=== PATIENT | female | born 1960 | race Caucasian/White ===

== ENCOUNTER 2016-05-19 00:07 | Emergency (ER) | payer OTHER ==
[2016-05-19] MEDS ORDERED: EPINEPHRINE ONE (00:20)
[2016-05-19] MEDS ORDERED: PEPCID ONE (00:25)
[2016-05-19] MEDS ORDERED: SOLU-MEDROL ONE (00:25)
[2016-05-19] MEDS ORDERED: BENADRYL ONE (00:25)
[2016-05-19] MEDS ORDERED: SODIUM CHLORIDE 0.9% INJ ONE (00:27)
[2016-05-19] MEDS ORDERED: SOLU-MEDROL IV ONE (00:27)
[2016-05-19] MEDS ORDERED: PEPCID IV ONE (00:27)
[2016-05-19] MEDS ORDERED: EPINEPHRINE SUBQ ONE ×3 (00:27→01:02)
[2016-05-19] MEDS ORDERED: BENADRYL IV ONE (00:27)
[2016-05-19] MEDS ORDERED: ATIVAN IV ONE (00:33)
--- NOTE | 2016-05-19 00:33 | PROVIDER DOCUMENTATION ---
HPI-Rash/Wound/ReCheck - General Source: patient, family () - History of Present Illness-Dermatology Location: reports: upper extremity, face, hands Quality: reports: itchy, painful Severity: reports: moderate Onset/Duration: reports: this afternoon (1400) Timing: reports: still present Context/Associated Symptoms: reports: rash Identifiable cause?: No Exposure: reports: unknown cause Locality of Occurance: Home Similar Symptoms Previously?: No Recently seen or treated by another doctor?: No <Bernardo Holt - Last Filed: 05/19/16 00:48> <Monique Luna - Last Filed: 05/19/16 01:58> - General Chief Complaint: Allergic Reaction Stated Complaint: "PAIN/BODY SWELLING" Time Seen by Provider: 05/19/16 00:27 Allergies/Adverse Reactions: Allergies Allergy/AdvReac Type Severity Reaction Status Date / Time morphine Allergy Severe HEADACHE Verified 04/27/12 13:11 NSAIDS (Non-Steroidal Allergy Severe Unknown Verified 04/27/12 13:11 Anti-Inflamma oseltamivir phosphate * Allergy Severe NAUSEA/VOMI Verified 04/27/12 13:20 [From Tamiflu] TING Penicillins Allergy Severe NAUSEA/VOMI Verified 04/27/12 13:11 TING Sulfa (Sulfonamide Allergy Severe Unknown Verified 04/27/12 13:11 Antibiotics) amoxicillin [Amoxicillin] Allergy Intermediate RASH Verified 04/28/12 06:48 sulfamethoxazole Allergy Intermediate RASH Verified 04/28/12 06:48 [From Bactrim] trimethoprim [From Bactrim] Allergy Intermediate RASH Verified 04/28/12 06:48 Home Medications: Home Medication List Medication Instructions Recorded Confirmed Last Taken Type Alprazolam [Xanax] 1 mg PO TID 04/27/12 04/27/12 05/20/12 17:00 History Estradiol [Estrace] 2 mg PO DAILY 04/27/12 04/27/12 05/19/12 20:00 History Omeprazole [Prilosec] 40 mg PO DAILY 04/27/12 04/27/12 05/20/12 04:00 History Fluticasone 50 Mcg Nasal [place] 1 spray MATILDE DAILY 04/28/12 04/28/12 05/14/12 History [Flonase] Docusate Sodium [Colace] 100 mg PO BID PRN PRN #0 capsule 05/01/12 05/20/12 13: 00 Rx ATORVAstatin [Lipitor] 40 mg PO DAILY 05/20/12 05/20/12 05/20/12 History Clindamycin [Cleocin] 300 mg PO TID #21 capsule 05/20/12 Unknown Rx Esomeprazole [Nexium] 40 mg PO DAILY 05/20/12 05/20/12 05/20/12 10:00 History Hydrocodone/APAP 7.5 mg/325 mg 1 each PO Q6H PRN PRN #20 tablet 05/20/12 Unknown Rx [[place]-7.5] Varenicline Tartrate [Chantix] 1 mg PO BID 05/20/12 05/20/12 05/19/12 History Diphenhydramine [Benadryl] 25 mg PO Q4-6H PRN PRN #20 capsule 05/19/16 Unknown Rx Famotidine [Pepcid] 20 mg PO DAILY #20 tablet 05/19/16 Unknown Rx Prednisone [Deltasone] 20 mg PO DIRECTED #12 tablet 05/19/16 Unknown Rx - History of Present Illness-Dermatology Nature of Presenting Problem: 55 y/o F presents to the ED c/o painful rash to bilateral upper extremities and face. onset today around 1400. rash started on her right hand then noticed x1 hour later it had spread to her bilateral arms and around her eyes. patient states she took a children's dose 12.5mg of Benadryl around 1500 today. denies any new foods or any new environments. recently had surgery x3 weeks ago on her left hand. patient is currently involved in chronic pain management and states she ran out of her 1bib but does have any appointment tomorrow for a refill. denies any shortness of breath, difficulty breathing, throat swelling and all other symptoms. no other voiced complaints. (Yanet,Bernardo B.) Review of Systems - Adult - REVIEW OF SYSTEMS - ADULT Constitutional: denies: chills, fever Eyes: denies: decreased vision, blurred vision Ears, Nose, Mouth & Throat: denies: throat pain, throat swelling Cardiovascular: denies: chest pain, palpitations Respiratory: denies: shortness of breath, wheezing Gastrointestinal: denies: diarrhea, nausea, vomiting Musculoskeletal: denies: bone pain, back pain, joint pain Integumentary: reports: rash. denies: itching Neurological: denies: dizziness/vertigo, headache/migraines Psychiatric: reports: no symptoms reported Endocrine: reports: no symptoms reported Hematologic/Lymphatic: reports: no symptoms reported Allergic/Immunologic: reports: no symptoms reported <Bernardo Holt - Last Filed: 05/19/16 00:48> Past History - Adult - PAST MEDICAL HISTORY-ADULT Review of Records: reports: Nursing Assessment Review, Medications Reviewed, Social history reviewed & non-contributory. Major Childhood Illnesses: reports: denies history Cardiovascular: reports: denies history Respiratory: reports: asthma Gastrointestinal: reports: denies history Obstetrical/Gynecological: reports: denies history Genitourinary: reports: denies history Musculoskeletal: reports: denies history Neurological: reports: denies history Psychiatric: reports: denies history Endocrine/Immune: reports: denies history Other Conditions: reports: denies history - PRIOR SURGERIES/PROCEDURES Surgical/Procedure History: reports: hysterectomy - IMMUNIZATION STATUS Childhood Immunizations: See Nurse Assessment Flu Vaccine: See Nurse Assessment - FAMILY HISTORY Family History: reviewed, not pertinent - SOCIAL HISTORY Smoking: cigarettes, less than 1 pack/day <Bernardo Holt - Last Filed: 05/19/16 00:48> Physical Exam-General - PHYSICAL EXAM-ADULT Initial Vital Signs Reviewed: Yes - CONSTITUTIONAL General Appearance: alert, no apparent distress, anxious - EYES Eyes: PERRL/EOMI, pink conjunctivae - HEAD, EARS, NOSE, MOUTH & THROAT HENMT: moist mucous membranes, normal ENT inspection, other (airway intact, no tongue swelling) - NECK Neck: full range of motion, normal inspection - RESPIRATORY Respiratory: chest non-tender, lungs clear, normal breath sounds, no pleuratic chest pain, no respiratory distress, no accessory muscle use - CARDIOVASCULAR Cardiovascular: normal peripheral pulses, regular rate, rhythm - GASTROINTESTINAL (ABDOMEN) Abdominal Exam: normal bowel sounds, non tender, soft - MUSCULOSKELETAL Extremity: normal range of motion, normal inspection - SKIN Integumentary: warm/dry, rash (bilateral upper extremity, yesenia orbital; rash tender to touch) - NEUROLOGIC Neurologic: grossly normal, no motor/sensory deficits - PSYCHIATRIC Psych/Mental Status: normal mood/affect, oriented x 3, anxious <Bernardo Holt - Last Filed: 05/19/16 00:48> Progress <Bernardo Holt - Last Filed: 05/19/16 00:48> - REASSESSMENT Reassessment #1 Time Reassessed: 00:58 (2 doses of Epi at this point, 15 minutes apart. Ptient swelling greatly improving. There is still no sign or oropharyngeal or tongue swelling. urticaria almost completely gone fromt he arms, still mild swelling around the eyes. ) Status: improving Reassessment #2 Time Reassessed: 01:56 (swelling completely gone from the face. Discussed patient a final time with Dr. Bowen, agrees with treatment disposition and plan) Status: improving <Monique Luna - Last Filed: 05/19/16 01:58> - PLAN OF CARE/RESULTS Progress/Plan/Lab Results: patient will receive epi, steroid, Benadryl and Pepcid. (Bernardo Holt) Discussed patient with Dr. Bowen upon first evaluation. Upon discharge, discussed with him disposition, treatment and plan, of which he agreed Vital Signs Temp Pulse Resp BP Pulse Ox 05/19/16 00:45 98.2 F 107 H 20 133/68 100 05/19/16 00:13 99.7 F H 134 H 20 157/086 90 L morphine Allergy (Severe, Verified 04/27/12 13:11) HEADACHE feels like top of head coming off NSAIDS (Non-Steroidal Anti-Inflamma Allergy (Severe, Verified 04/27/12 13:11) Unknown hurts stomach, has ulcer oseltamivir phosphate * [From Tamiflu] Allergy (Severe, Verified 04/27/12 13:20) NAUSEA/VOMITING Penicillins Allergy (Severe, Verified 04/27/12 13:11) NAUSEA/VOMITING Sulfa (Sulfonamide Antibiotics) Allergy (Severe, Verified 04/27/12 13:11) Unknown amoxicillin [Amoxicillin] Allergy (Intermediate, Verified 04/28/12 06:48) RASH sulfamethoxazole [From Bactrim] Allergy (Intermediate, Verified 04/28/12 06:48) RASH trimethoprim [From Bactrim] Allergy (Intermediate, Verified 04/28/12 06:48) RASH Alprazolam [Xanax] 1 mg PO TID 04/27/12 Estradiol [Estrace] 2 mg PO DAILY 04/27/12 Omeprazole [Prilosec] 40 mg PO DAILY 04/27/12 Fluticasone 50 Mcg Nasal [place] [Flonase] 1 spray MATILDE DAILY 04/28/12 Docusate Sodium [Colace] 100 mg PO BID PRN PRN #0 capsule 05/01/12 ATORVAstatin [Lipitor] 40 mg PO DAILY 05/20/12 Clindamycin [Cleocin] 300 mg PO TID #21 capsule 05/20/12 Esomeprazole [Nexium] 40 mg PO DAILY 05/20/12 Hydrocodone/APAP 7.5 mg/325 mg [[place]-7.5] 1 each PO Q6H PRN PRN #20 tablet 09/25 Varenicline Tartrate [Chantix] 1 mg PO BID 05/20/12 Laboratory 05/19/16 05/19/16 01:15 01:15 WBC 6.33 RBC 5.98 H Hgb 16.3 H Hct 51.1 H MCV 85.5 MCH 27.3 MCHC 31.9 L RDW Std Deviation 17.2 H Plt Count 280 MPV 10.7 H Immature Gran % (Auto) 0.5 Neut % (Auto) 64.6 Lymph % (Auto) 25.9 [place] % (Auto) 5.4 Eos % (Auto) 3.6 Baso % (Auto) 0.0 Immature Gran # (Auto) 0.03 Neut # (Auto) 4.09 Lymph # (Auto) 1.64 [place] # (Auto) 0.34 Eos # (Auto) 0.23 Baso # (Auto) 0.00 Sodium 136 Potassium 5.1 Chloride 97 L Carbon Dioxide 27 Anion Gap 12 BUN 23 H Creatinine 0.7 Estimated GFR/1.73 m2 > 60 BUN/Creatinine Ratio 33 Glucose 119 H Calculated Osmolality 277 Calcium 9.3 Total Bilirubin 0.40 AST 13 ALT 6 L Alkaline Phosphatase 143 H Total Protein 7.6 Albumin 3.8 Globulin 4.0 Albumin/Globulin Ratio 1.0 Orders Category Date Time Status Saline Loc NOW Care 05/19/16 00:27 Active CBC WITH ELECTRONIC DIFF [HEME] Stat Lab 05/19/16 01:15 Completed CMP [COMPREHENSIVE METABOLIC PANEL] [CHEM] Stat Lab 05/19/16 01:15 Completed Diphenhydramine [Benadryl] Med 05/19/16 00:25 Discontinued 50 mg .ROUTE .STK-MED ONE Diphenhydramine [Benadryl] Med 05/19/16 00:27 Discontinued 50 mg IV NOW ONE Epinephrine Med 05/19/16 00:27 Discontinued 0.3 mg SUBQ NOW ONE Epinephrine Med 05/19/16 00:37 Discontinued 0.3 mg SUBQ NOW ONE Epinephrine Med 05/19/16 01:02 Discontinued 0.3 mg SUBQ NOW ONE Epinephrine Med 05/19/16 00:20 Discontinued 1 mg .ROUTE .STK-MED ONE Famotidine [Pepcid] Med 05/19/16 00:25 Discontinued 20 mg .ROUTE .STK-MED ONE Famotidine [Pepcid] Med 05/19/16 00:27 Discontinued 20 mg IV NOW ONE Lorazepam [Ativan] Med 05/19/16 00:33 Discontinued 1 mg IV NOW ONE Methylprednisolone Sod Succ [Solu-Medrol] Med 05/19/16 00:25 Discontinued 125 mg .ROUTE .STK-MED ONE Methylprednisolone Sod Succ [Solu-Medrol] Med 05/19/16 00:27 Discontinued 125 mg IV NOW ONE Sodium Chloride 0.9% Med 05/19/16 00:27 Discontinued 5 - 10 ml INJ NOW ONE (Monique Luna) Departure <Bernardo Holt - Last Filed: 05/19/16 00:48> - Departure Time of Disposition Order: 01:57 Certified Medical Emergency: Emergent <Monique Luna - Last Filed: 05/19/16 01:58> - Departure DIAGNOSIS: Allergic reaction Qualifiers: Encounter type: initial encounter Qualified Code(s): T78.40XA - Allergy, unspecified, initial encounter Disposition: HOME 01 Condition: Stable Additional Instructions: Follow up with the corrections officer. ED Follow Up Instructions: You have been treated by a care provider in the Emergency Department. These instructions are being provided to you so you can have an understanding of how to care for yourself upon discharge. Upon discharge from the Emergency Department, you are responsible for making arrangements for follow-up care by a physician of your choice. Take all prescribed medications as directed. Return to the Emergency Department immediately for any new or worsening symptoms. You may call the Physician Referral phone number at [phone] to obtain a list of Physicians who are taking new patients. Prescriptions: Diphenhydramine [Benadryl] 25 mg PO Q4-6H PRN PRN #20 capsule PRN Reason: Itching Prednisone [Deltasone] 20 mg PO DIRECTED #12 tablet Famotidine [Pepcid] 20 mg PO DAILY #20 tablet Referrals: Sampson Clinton MD [Primary Care Provider] - Ute Oglesby MD [STAFF PHYSICIAN] - Attestation - Scribe Verification/Attestation Scribe:: Bernardo Holt Acting as Scribe for:: Monique Luna Scribe documention review:: This chart was documented by a scribe and accurately reflects the service the provider performed and the decisions made by the provider. <Bernardo Holt - Last Filed: 05/19/16 00:48> Physician Attestation
[2016-05-19 01:21] LABS: MANUAL DIFF NEEDED? NO
[2016-05-19 01:39] LABS: EOS# 0.23 X1000 (0.0-0.7); EOS% 3.6 % (0.0-10.0); HEMATOCRIT 51.1 % (37.0-47.0); HEMOGLOBIN 16.3 g/dL (12.0-16.0); IMM GRAN# 0.03 X1000 (0.0-0.04); IMM GRAN% 0.5 % (0.0-0.5); LYMPH# 1.64 X1000 (1.2-3.4); LYMPH% 25.9 % (20.5-51.1); MCH 27.3 PG (27-31); MCHC 31.9 g/dL (33-37); MCV 85.5 FL (81-99); MONO# 0.34 X1000 (0.11-0.59); MONO% 5.4 % (1.7-9.3); MPV 10.7 FL (7.4-10.4); NEUT% 64.6 % (42.2-75.2); PLT 280 X1000 (130-400); RBC 5.98 XMIL (4.2-5.4)
[2016-05-19 01:51] LABS: AGAP 12; ALBUMIN 3.8 g/dL (3.5-5.0); ALKALINE PHOSPHATASE 143 U/L (32-104); BUN 23 mg/dL (8-22); CALCIUM 9.3 mg/dL (8.8-10.2); CHLORIDE 97 mmol/L (98-107); COSMO 277; GOT 13 U/L (10-30); GPT 6 U/L (10-36); POTASSIUM 5.1 mmol/L (3.5-5.1); SODIUM 136 mmol/L (136-145); TCO2 27 mmol/L (25-35); TOTAL PROTEIN 7.6 g/dL (6.3-8.3)
[2016-05-19 02:23] VITALS: BP 132/78
== END 2016-05-19 02:23 | disposition home or self-care (01) ==
LOC: P.ED 00:07
DX: T78.40XA Allergy, unspecified, initial encounter (principal); R21 Rash and other nonspecific skin eruption; L29.9 Pruritus, unspecified; M79.602 Pain in left arm; M79.601 Pain in right arm; R51 Headache; R22.0 Localized swelling, mass and lump, head; F17.210 Nicotine dependence, cigarettes, uncomplicated; Z79.899 Other long term (current) drug therapy
CPT/HCPCS: 80053; 85025; 96372; 96374; 96375; J0171; J1200; J2060; J2930; S0028